=== PATIENT | male | born 1980 | race Caucasian/White ===

== ENCOUNTER → 2017-01-06 | Outpatient (CLI) | payer OTHER ==
[~2017-01-06] MED LIST: VICODIN 5/500 T1 TAB PO
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
== END | disposition home or self-care (01) ==
LOC: CMRI 19:47
DX: R51 Headache (principal); J34.89 Other specified disorders of nose and nasal sinuses; J34.2 Deviated nasal septum
CPT/HCPCS: 70551